=== PATIENT | male | born 1970 | race Caucasian/White ===

== ENCOUNTER 2017-04-08 21:27 | Emergency (ER) | payer BC ==
[~2017-04-08] VITALS: Ht 182.9 cm; Wt 124.3 kg
[2017-04-08 21:48] VITALS: BP_SYST 148
--- NOTE | 2017-04-08 21:48 | NUR ---
Patient to ER bed 07 to gown for evaluation. Side rails up. Report given to CAPRICE Ortiz.
[2017-04-08] MEDS ORDERED: IBUPROFEN 800 MG TABLET PO ONE (22:15)
--- NOTE | 2017-04-08 22:16 | NUR ---
Patient reports [place] and hyperextended his left knee. Pain is 6/10. Left knee is swollen. Pedal Pulses are present but unable to move knee. No other complaints/injuries per patient or as noted.
[2017-04-08 23:16] VITALS: BP_SYST 135
--- NOTE | 2017-04-08 23:16 | NUR ---
Patient given written and verbal discharge instructions and verbalizes understanding. ER MD discussed with patient the results and treatment provided. Patient in stable condition. ID arm band removed. Rx of [place] and Motrin given. Patient educated on pain management and to follow up with PMD in 2 days. Pain Scale 6/10. Patient discharged on pain medication will get filled out [facility] for questions provided and answered.
--- NOTE | 2017-04-08 23:16 | NUR ---
Note undsonia in EDM - 04/08/17 at 2318 by [email or web address] Patient given written and verbal discharge instructions and verbalizes understanding. ER discussed with patient the results and treatment provided. Patient in stable condition. ID arm band removed. Rx of [place] and Motrin given. Patient educated on pain management and to follow up with PMD in 2 days. Pain Scale 6/10. Patient discharged on pain medication will get filled out [facility] for questions provided and answered.
== END 2017-04-08 23:16 | disposition home or self-care (01) ==
LOC: SED 21:27
DX: S82.142A Displaced bicondylar fracture of left tibia, initial encounter for closed fracture (principal); I10 Essential (primary) hypertension; Z88.2 Allergy status to sulfonamides; W19.XXXA Unspecified fall, initial encounter; Y93.61 Activity, american tackle football; Y92.321 Football field as the place of occurrence of the external cause; Y99.8 Other external cause status
CPT/HCPCS: 73564; 99284